=== PATIENT | female | born 1995 | race Caucasian/White ===

== ENCOUNTER 2024-03-05 21:42 | Emergency (ER) | payer SELFPAY ==
[~2024-03-05] VITALS: Ht 160 cm; Wt 60.0 kg
[2024-03-05 21:44] VITALS: BP 112/79; PULSE 118; RESP 20; TEMP 97.8; O2SAT 100
== END 2024-03-05 23:00 | disposition left against medical advice (07) ==
LOC: EMS 21:42
DX: R06.02 Shortness of breath (principal); Z53.21 Procedure and treatment not carried out due to patient leaving prior to being seen by health care provider